=== PATIENT | female | born 1985 | race Caucasian/White ===

== ENCOUNTER 2017-06-06 10:04 | Emergency (ER) | payer SELFPAY ==
[~2017-06-06] VITALS: Ht 177.8 cm; Wt 60.0 kg
[~2017-06-06 10:04] MED LIST: DOXY100T PO; METO10TA PO
[2017-06-06 10:06] VITALS: BP 120/87; PULSE 52; RESP 20; TEMP 97.8; O2SAT 97
[2017-06-06] MEDS ORDERED: SUDO60TA2 PO (10:23)
[2017-06-06] MEDS ORDERED: HOMEOPATHIC (10:23)
--- NOTE | 2017-06-06 10:27 | PD ---
HPI Chief Complaint: ENT Complaint Time Seen by Provider: 10:26 Travel History International Travel<30 days: No Contact w/Intl Traveler<30days: No Traveled to known affect area: No History of Present Illness HPI 31-year-old female presents to the emergency Department with complaint of ringing in her left ureter onset yesterday morning. She says is constant. Sounds like an alarmist sounding. Denies recent illness including nasal congestion, cough, ear pain, sore throat. Denies fever, vomiting. Denies trauma to the ear. Has tried Sudafed and ringing ear drops for symptom management with no relief. Denies current medications. No known relieving or aggravating factors. Symptoms are mild in severity. Has no other medical complaints. Says she has been up with her primary care provider on Sunday and with an ENT on 20 June. No other modifying factors or associated signs and symptoms. 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 No rash. HEAD: Atraumatic. Normocephalic. EYES: Pupils equal and round. No scleral icterus. No injection or drainage. ENT: Mucosa pink and moist. No erythema or exudates. No uvular edema. No uvular , palatal, or tonsillar deviation. Airway patent. EARS: Bilateral pinnae and external canals appear within normal limits. Bilateral tympanic membranes without erythema, dullness or perforation. NECK: Trachea midline. No lymphadenopathy. CARDIOVASCULAR: Regular rate. RESPIRATORY: No accessory muscle use. GASTROINTESTINAL: Flat. MUSCULOSKELETAL: No obvious deformities. No clubbing. No cyanosis. No edema. NEUROLOGICAL: Awake and alert. Oriented 3. No obvious cranial nerve deficits. Motor grossly within normal limits. Normal speech. Moves all extremities. 5/5 strength to all extremities. PSYCHIATRIC: Appropriate mood and affect; insight and judgment normal. Data Data Last Documented VS Vital Signs Date Time Temp Pulse Resp B/P Pulse Ox O2 Delivery O2 Flow Rate FiO2 06/06/17 10:06 97.8 52 20 120/87 97 Room Air MDM Medical Screen Exam Complete: Yes Emergency Medical Condition: No Differential Diagnosis Tinnitus, drug ototoxicity, medical clearance Narrative Course 31-year-old female with tinnitus of the left year. Physical exam is unremarkable. The patient is not on any current medications to cause the tinnitus. She hasn't been with her primary care provider scheduled on Sunday and has appointment with ENT on June 20. Instructed patient to follow up as scheduled appointments. Vital signs are stable and the patient is stable for outpatient follow-up and treatment. The patient has no urgent or emergent medical complaints. There is no emergent or urgent medical need at this time. I instructed the patient to follow up with their primary care provider. A medical screening exam was performed: At the time of evaluation the presenting medical condition was determined not to be of an emergent nature. The patient was given the option of receiving additional care, but declined. Patient was given options for additional community resources from which to obtain care. The Patient Has Been advised to seek medical attention for their presenting complaint. The patient has been advised to return to the ER at any time if an emergent condition develops. Primary Impression: Encounter for medical screening examination Condition: Stable Britt Burnett [employer] Jun 06, 2017 10:27
== END 2017-06-06 10:42 | disposition left against medical advice (07) ==
LOC: NEPK 10:04
DX: H93.12 Tinnitus, left ear (principal)
CPT/HCPCS: 99281